=== PATIENT | male | born 1975 | race African-American/Black ===

== ENCOUNTER 2021-08-29 12:01 | Emergency (ER) | payer OTHER ==
[2021-08-29 12:18] VITALS: PULSE 58; BMI 26.6
[2021-08-29 13:15] VITALS: BP 132/71
[2021-08-29] MEDS ORDERED: FAMOTIDINE 20 MG/50 ML IVPB 20 MG/50 ML MG IVPB ONE ×2 (13:44→13:46)
[2021-08-29] MEDS ORDERED: MAG HYDROX/AL HYDROX/SIMETH 30 ML UNIT-DOSE CUP PO ONE (13:44)
[2021-08-29] MEDS ORDERED: MAG HYDROX/AL HYDROX/SIMETH 30 ML UNIT-DOSE CUP ONE (13:46)
[2021-08-29 15:43] LABS: BASO % 0.4 % (0-2.0); HEMATOCRIT 45.4 % (35.4-49); LYMPH % 24.8 % (8-40); MCHC 35.3 g/dl (32.0-35.9); MEAN CELL VOLUME 87.7 fl (80-96); MONO % 18.6 % (3.8-10.2); NEUT % 56.2 % (42.8-82.8); PLATELET COUNT 305 10^3/uL (134-434); RBC 5.17 M/mm3 (4.00-5.60); RDW 12.4 % (11.9-15.9); WHITE BLOOD COUNT 4.5 K/mm3 (4.0-10.0)
[2021-08-29 16:00] LABS: ALBUMIN 3.7 g/dl (3.4-5.0); BLOOD UREA NITROGEN 10.5 mg/dL (7-18); CALCIUM 9.9 mg/dL (8.5-10.1)
[2021-08-29 16:03] LABS: CREATININE 1.1 mg/dL (0.55-1.3); TOT PROT 7.3 g/dl (6.4-8.2)
[2021-08-29 16:05] LABS: BILIRUBIN,TOTAL 0.5 mg/dL (0.2-1)
[2021-08-29] MEDS ORDERED: ONDANSETRON 4 MG/2 ML VIAL IVPUSH ONE (17:03)
[2021-08-29] MEDS ORDERED: ONDANSETRON 4 MG/2 ML VIAL ONE (17:05)
[2021-08-29 18:18] VITALS: TEMP 99.1
== END 2021-08-29 18:50 | disposition home or self-care (01) ==
LOC: JER 12:01
PROC: 3E033GC Introduction of Other Therapeutic Substance into Peripheral Vein, Percutaneous Approach (ICD-10-PCS; principal; 2021-08-29)
PROC: 3E033GC Introduction of Other Therapeutic Substance into Peripheral Vein, Percutaneous Approach (ICD-10-PCS; 2021-08-29)
DX: R10.13 Epigastric pain (principal); R51.9 Headache, unspecified
CPT/HCPCS: 36415; 71045-TC-FY; 80053; 83690; 85025; 93005; 93010; 99285-25; C9803-CS; U0003; U0005

== ENCOUNTER 2021-08-30 05:38 | Emergency (ER) | payer OTHER ==
[2021-08-30 05:57] VITALS: BP 144/85; PULSE 68; TEMP 98.9; BMI 29.2
[2021-08-30] MEDS ORDERED: ONDANSETRON 4 MG/2 ML VIAL IVPUSH ONE (06:09)
[2021-08-30] MEDS ORDERED: SODIUM CHLORIDE 0.9% 1000 ML INFUS.BAG IV ONE (06:09)
[2021-08-30] MEDS ORDERED: FAMOTIDINE 20 MG/50 ML IVPB 20 MG/50 ML MG IVPB ONE (06:09)
[2021-08-30] MEDS ORDERED: ACETAMINOPHEN 1000 MG/100 ML BAG IVPB ONE (06:09)
[2021-08-30] MEDS ORDERED: ONDANSETRON 4 MG/2 ML VIAL ONE (06:20)
[2021-08-30] MEDS ORDERED: ACETAMINOPHEN INJECTION 100 ML IVPB ONE (06:20)
[2021-08-30 06:37] LABS: HEMATOCRIT 47.4 % (35.4-49); HEMOGLOBIN 16.6 GM/dL (11.7-16.9); MCHC 35.1 g/dl (32.0-35.9); MEAN CELL VOLUME 88.3 fl (80-96); MEAN PLT VOLUME 8.2 fl (7.5-11.1); PLATELET COUNT 371 10^3/uL (134-434); RBC 5.37 M/mm3 (4.00-5.60); RDW 12.9 % (11.9-15.9); WHITE BLOOD COUNT 4.9 K/mm3 (4.0-10.0)
[2021-08-30 06:56] LABS: ALBUMIN 3.7 g/dl (3.4-5.0); BLOOD UREA NITROGEN 13.4 mg/dL (7-18); CALCIUM 9.7 mg/dL (8.5-10.1)
[2021-08-30 07:00] LABS: CREATININE 1.4 mg/dL (0.55-1.3)
[2021-08-30 07:01] LABS: BILIRUBIN,TOTAL 0.8 mg/dL (0.2-1); TOT PROT 7.5 g/dl (6.4-8.2)
[2021-08-30 08:47] LABS: ANISOCYTOSIS 0; HELMET CELLS 0; HOWELL-JOLLY BODIES 0; MACROCYTOSIS 0; OVALOCYTE 0; ROULEAU 0; SICKELED CELLS 0; TARGET CELLS 0; TEAR DROP CELLS 0; TOXIC GRANULATION 0
== END 2021-08-30 07:00 | disposition left against medical advice (07) ==
LOC: JER 05:38
DX: R10.9 Unspecified abdominal pain (principal)
CPT/HCPCS: 36415; 80053; 83690; 84484; 85025; 99281-25

== ENCOUNTER 2022-10-20 11:13 | Emergency (ER) | payer OTHER ==
[2022-10-20] MEDS ORDERED: HALOPERIDOL LACTATE 5 MG/ML IM ONE ×4 (11:23→17:32)
[2022-10-20] MEDS ORDERED: SODIUM CHLORIDE 1,000 ML IV STA (11:30)
[2022-10-20 11:50] VITALS: BP 154/91; PULSE 52; RESP 17; TEMP 99.1; BMI 25.9
[2022-10-20 13:44] LABS: BASO % 0.3 % (0-2.0); HEMATOCRIT 41.4 % (35.4-49); HEMOGLOBIN 14.1 GM/dL (11.7-16.9); LYMPH % 16.5 % (8-40); MCH 30.4 pg (25.7-33.7); MEAN CELL VOLUME 89.4 fl (80-96); MEAN PLT VOLUME 7.9 fl (7.5-11.1); MONO % 6.1 % (3.8-10.2); NEUT % 77.1 % (42.8-82.8); PLATELET COUNT 391 10^3/uL (134-434); RBC 4.63 M/mm3 (4.00-5.60); RDW 12.7 % (11.9-15.9); WHITE BLOOD COUNT 8.6 K/mm3 (4.0-10.0)
[2022-10-20] MEDS ORDERED: ACETAMINOPHEN 1000 MG/100 ML BAG IVPB ONE (13:44)
[2022-10-20 13:49] LABS: INR 1.12 (0.83-1.09)
[2022-10-20 13:52] LABS: ACTIVATED PTT 35.5 SECONDS (25.2-36.5)
[2022-10-20] MEDS ORDERED: ACETAMINOPHEN INJECTION 100 ML IVPB ONE (13:59)
[2022-10-20 14:17] LABS: CHLORIDE 107 mmol/L (98-107); POTASSIUM 3.6 mmol/L (3.5-5.1); SODIUM 143 mmol/L (136-145)
[2022-10-20 14:20] LABS: GLUCOSE,RANDOM 120 mg/dL (74-106); LIPASE 72 U/L (73-393)
[2022-10-20 14:21] LABS: ALBUMIN 3.6 g/dl (3.4-5.0); ANION GAP 8 MMOL/L (8-16); BLOOD UREA NITROGEN 7.3 mg/dL (7-18); CO2 28 mmol/L (21-32)
[2022-10-20 14:23] LABS: CREATININE 1.1 mg/dL (0.55-1.3); SGPT/ALT 27 U/L (13-61)
[2022-10-20 14:24] LABS: SGOT/AST 24 U/L (15-37)
[2022-10-20 14:25] LABS: BILIRUBIN,TOTAL 0.5 mg/dL (0.2-1); TOT PROT 6.7 g/dl (6.4-8.2)
[2022-10-20 14:26] LABS: ALK PHOS 96 U/L (45-117)
[2022-10-20 14:29] LABS: EPI CELLS 2 /uL (0-25.1); HYALINE CASTS 0 /uL (0-3.1); PH,URINE >= 9.0 (5.0-8.0); URINE APPEARANCE CLEAR; URINE BACTERIA 4 /uL (0-1359); URINE BILIRUBIN NEGATIVE (NEGATIVE); URINE COLOR YELLOW; URINE GLUCOSE (UA) NEGATIVE (NEGATIVE); URINE KETONE 1+ (NEGATIVE); URINE LEUK ESTERASE NEGATIVE (NEGATIVE); URINE NITRITE NEGATIVE (NEGATIVE); URINE PROTEIN 1+ (NEGATIVE); URINE RBC 33 /uL (0-23.9); URINE WBC 2 /uL (0-25.8)
[2022-10-20 14:33] LABS: URINE BENZODIAZEPINES NEGATIVE (NEGATIVE)
[2022-10-20 14:34] LABS: COCAINE, UR NEGATIVE (NEGATIVE); OPIATES, URI NEGATIVE (NEGATIVE); URINE AMPHETAMINES NEGATIVE (NEGATIVE); URINE BARBITURATES NEGATIVE (NEGATIVE)
[2022-10-20 14:35] LABS: PHENCYCLIDINE,URINE NEGATIVE (NEGATIVE)
[2022-10-20 14:42] LABS: METHADONE, UR NEGATIVE (NEGATIVE)
== END 2022-10-20 18:34 | disposition left against medical advice (07) ==
LOC: JER 11:13
PROC: 3E033NZ Introduction of Analgesics, Hypnotics, Sedatives into Peripheral Vein, Percutaneous Approach (ICD-10-PCS; principal; 2022-10-20)
PROC: 3E023GC Introduction of Other Therapeutic Substance into Muscle, Percutaneous Approach (ICD-10-PCS; 2022-10-20)
PROC: 3E023GC Introduction of Other Therapeutic Substance into Muscle, Percutaneous Approach (ICD-10-PCS; 2022-10-20)
PROC: 3E0337Z Introduction of Electrolytic and Water Balance Substance into Peripheral Vein, Percutaneous Approach (ICD-10-PCS; 2022-10-20)
DX: R55 Syncope and collapse (principal); R41.82 Altered mental status, unspecified; Z53.21 Procedure and treatment not carried out due to patient leaving prior to being seen by health care provider; Z20.822 Contact with and (suspected) exposure to COVID-19
CPT/HCPCS: 0241U-QW; 36415; 70450-TC; 71045-TC-FY; 72125-TC; 72128-TC; 74177-TC; 80053; 80307; 81003; 82140; 82962; 83605; 83690; 83735; 84443; 84484; 85025; 85610; 85730; 86850; 86900; 86901; 87040; 87086; 93005; 93010; 99285-25